=== PATIENT | male | born 2000 | race Caucasian/White ===

== ENCOUNTER 2022-07-22 18:45 | Emergency (ER) | payer OTHER ==
--- NOTE | 2022-07-22 19:12 | ED Physician Documentation ---
History of Present Illness - Stated complaint Stated Complaint: MHE - Chief complaint Chief Complaint: MHE - History obtained from History obtained from: Patient, EMS - Additonal information Additional information: The patient is brought to the emergency department by EMS for chief complaint of panic attack. He states it came on suddenly while he was at work and was set off by somebody asking how he was doing. Patient states he just started shaking and crying uncontrollably and somebody called EMS. The patient states that he has a history of anxiety and depression and that he has been "holding it all in" because he is afraid of anybody finding out about his mental health struggles, and him not being able to go and appointment which she is scheduled to do in about 6 weeks. The patient states he does not feel suicidal, though he occasionally has brief thoughts of suicide. Patient states he has never had a plan and would not really want to commit suicide. He does not feel suicidal at this time. He denies any specific homicidal urges, though when he gets anxious, he sometimes feels aggressive and can react strongly. However, he has not done anything to harm anyone and does not feel that he would. The patient states that there is not been a specific trigger for his anxiety recently. He states he is under the usual amount of stress that he normally would be and that in general, he likes his job fairly well. He states that he was prescribed medication previously for his anxiety, but only took it for couple of weeks and then quit taking it because he did not feel any better. He has not been taken anything since. He denies any inpatient stays for mental health reasons before. He has seen a counselor/therapist previously and states that this has been helpful. No other complaints at this time. PD PAST MEDICAL HISTORY - Present Medications Home Medications: Ambulatory Orders Medication Instructions Recorded Confirmed No Known Home Medications 07/22/22 07/22/22 - Allergies Allergies/Adverse Reactions: Allergies Allergy/AdvReac Type Severity Reaction Status Date / Time No Known Drug Allergies Allergy Verified 07/22/22 18:54 PD ED PE NORMAL - Vitals Vital signs reviewed: Yes - General General: Alert and oriented X 3, No acute distress, Well developed/nourished - HEENT HEENT: Atraumatic, PERRL, EOMI, Moist mucous membranes - Neck Neck: Supple, no meningeal sign - Cardiac Cardiac: RRR, No murmur, Strong equal pulses - Respiratory Respiratory: No respiratory distress, Clear bilaterally - Abdomen Abdomen: Soft, Non tender, Non distended - Derm Derm: Normal color, Warm and dry, No rash - Extremities Extremities: No deformity - Neuro Neuro: Alert and oriented X 3 - Psych Psych: Normal mood, Normal affect Results - Vitals Vitals: Oxygen O2 Source Room air PD Medical Decision Making - ED course Complexity details: considered differential, d/w patient ED course: The patient was not actively suicidal or homicidal and showed good insight into his condition. I felt that he would be a fine candidate for either outpatient follow-up or voluntary inpatient treatment and I did present both of these options to the patient. The patient stated he would prefer outpatient treatment at this time. [place] and that the patient should avail himself of assistance from his chief in this r egard. The patient is stable for discharge home. We have discussed the importance of returning to the emergency department immediately, should the patient begin to feel seriously suicidal and unsafe at home. Departure - Departure Disposition: 01 Home, Self Care Clinical Impression: Anxiety Depression Qualifiers: Depression Type: major depressive disorder Major depression recurrence: recurrent Active/Remission status: currently active Major depression episode severity: mild Qualified Code(s): F33.0 - Major depressive disorder, recurrent, mild Condition: Stable Instructions: ED Depression, ED Panic Attack Comments: You have had a panic attack tonight and are not suicidal. We have given you the option of having a dose of medicine for your anxiety and of staying overnight to talk to a social worker palliative care in the morning if you feel like this is something that would be of benefit. However, at this time, you have stated that [place] This is acceptable at this point in time, since you are not actively suicidal. However, it is important that you choose to follow through on this follow-up plan so that you get the care that you need. Please talk to your commanding officer about getting help [place]. If you begin to feel that you are a danger to yourself or others and or unsafe with yourself at home, please return to the emergency department immediately. Discharge Date/Time: 07/22/22 20:00
[2022-07-22 19:49] VITALS: BP 128/84
== END 2022-07-22 20:00 | disposition home or self-care (01) ==
LOC: ED 18:45
DX: F41.9 Anxiety disorder, unspecified (principal); F33.0 Major depressive disorder, recurrent, mild
CPT/HCPCS: 99283

== ENCOUNTER 2023-09-03 08:00 | Outpatient (CLI) | payer OTHER ==
--- NOTE | 2023-09-03 20:52 | XRAY Report ---
PROCEDURE: Knee 3V RT INDICATIONS: ACUTE KNEE PAIN, RIGHT TECHNIQUE: 3 views of the knee(s) were acquired. COMPARISON: None. FINDINGS: Bones: No fractures or dislocations. No suspicious bony lesions. Soft tissues: Small knee joint effusion. No suspicious soft tissue calcifications or masses. IMPRESSION: No acute bony abnormality. Reviewed by: Rolan Machado MD on 09/03/2023 8:50 PM PDT Approved by: Rolan Machado MD on 09/03/2023 8:50 PM PDT Station ID: [id number]
== END 2023-09-03 08:15 | disposition home or self-care (01) ==
LOC: DI.N 08:00
PROVIDERS: ATTEND Physician Assistant
DX: M25.561 Pain in right knee (principal)